=== PATIENT | female | born 1960 | race Caucasian/White ===

== ENCOUNTER 2016-11-01 19:41 | Emergency (ER) | payer BC ==
--- NOTE | 2016-11-01 20:48 | CT REPORT ---
HISTORY: Left lower quadrant abdominal pain. COMPARISON: None. TECHNIQUE: This examination was performed using automated exposure control, adjustment of mA or kV according to patient size, and/or use of iterative reconstruction technique. Axial contiguous images of the abdome n and pelvis were obtained without oral or IV contrast, coronal reformat images also performed. FINDINGS: The visualized lung parenchyma and cardiac structures are unremarkable. The right and left kidneys are unremarkable. There is no hydronephrosis or hydroureter. There is no c alculus. There is no hepatic mass or intrahepatic biliary dilatation identified on limited noncontrast imaging . The gallbladder is unremarkable, there is no cholelithiasis or pericholecystic fluid. The spleen is unremarkable. There is no pancreatic mass or ductal dilatation. The adrenal glands are unremark able. The stomach, small bowel and large bowel are unremarkable, aside from very minimal diverticulosis of the distal descending colon. There is no free intraperitoneal fluid or gas. There is no mesenteric edema or inflammatory process. Vascular structures of the abdomen and pelvis are unremarkable. No p athologic adenopathy is identified. There is no bone lesion. IMPRESSION: Distal descending colon diverticulosis, no acute diverticulitis, no acute intraperitoneal findings. Final Electronic Signature: This report was electronically signed by Jesus Alberto Rodriguez MD, FACR on 2016 8:46 PM. brayden /
--- NOTE | 2016-11-01 21:32 | ER PHYSICIAN DOCUMENTATION ---
Physician Documentation [facility] Name:Corina Ruby Age:56 yrs Sex:Female :1960 Arrival Date:11/01/2016 Time:19:41 Bed4 Private MD: Abner Cespedes Disposition: 11/01/16 21:07 Discharged to Home/Self Care. Impression: Abdominal Pain, Left Lower Quadrant. - Condition is Good. - Discharge Instructions: ABDOMINAL PAIN, Unknown Cause, (Female). - Medical Reconciliation form form. - Follow up: Emergency Department; When: As needed; Reason: Worsening of condition. - Problem is new. - Symptoms have improved. HPI: 11/01 20:00 This 56 yrs old Female presents to ER via Walk In with complaints of jm Abdominal Pain - LLQ. 20:00 The patient presents with abdominal pain in the left lower quadrant. Onset: The jm symptoms/episode began/occurred yesterday, and became worse today. The symptoms do not radiate. Associated signs and symptoms: Pertinent negatives: blood in stools, constipation, diarrhea, dysuria, fever, nausea, vomiting. The symptoms are described as sharp. Modifying factors: the symptoms are aggravated by movement. Severity of pain: in the emergency department the pain is unchanged. The patient has not experienced similar symptoms in the past. The patient has not recently seen a physician. Pt states pain is much worse when she bends over and moves around. She denies pulling a muscle. No dx of diverticula. . Historical: - Allergies: Dilaudid-HP; Latex; - Home Meds: 1. Celexa 20 mg oral tab Unknown once daily 2. Zoloft 20 mg/mL oral conc Unknown once daily for Depression associated with Manic Depressive Disorder - PMHx: OSTEOARTHRITIS; Foreign Body in Finger - : Removed (January 17, 2015); Finger Laceration - < 1 cm Simple Repaired by (January 17, 2015); - PSHx: KNEE SURGERY; APPENDECTOMY; HYSTERECTOMY; - Tetanus: < 10 years. - Ebola Screening: : No symptoms or risks identified at this time. . - Immunization history: Flu Vaccine < 1 year. - Social history: Smoking status: Patient states was never smoker of tobacco. ROS: 20:00 Constitutional: Negative for fever. jm 20:00 Cardiovascular: Negative for chest pain. 20:00 Abdomen/GI: Positive for abdominal pain, Negative for nausea, vomiting, diarrhea, constipation. 20:00 Back: Negative for injury or acute deformity, pain with movement. 20:00 : Negative for urinary symptoms, hematuria, flank pain. Exam: 20:00 Constitutional: The patient appears alert, awake, comfortable. 20:00 Eyes: Periorbital structures: appear normal, Conjunctiva: normal. 20:00 ENT: Mouth: is normal, Voice: is normal. 20:00 Cardiovascular: Rate: normal, Rhythm: regular. 20:00 Respiratory: Respirations: normal, Breath sounds: are normal. 20:00 Abdomen/GI: Bowel sounds: normal, Palpation: mild abdominal tenderness, in the left lower quadrant, rebound tenderness, is not appreciated, voluntary guarding, is not appreciated, involuntary guarding, is not appreciated. 20:00 Back: pain, is absent, CVA tenderness, is absent. 20:00 : CVA tenderness, is absent, Bladder: is normal. 20:00 Skin: Appearance: Color: pink, injury, is not appreciated. 20:00 Neuro: Mentation: is normal, Memory: is normal. 20:00 Psych: Behavior/mood is pleasant, cooperative, Affect is calm. Vital Signs: 19:55 BP 139 / 92 RA Sitting (auto/reg); Pulse 80 LA; Resp 16 S; Temp 98.2; Pulse Ox 93% on em3 R/A; Weight 68.95 kg (R); Height 5 ft. 4 in. (162.56 cm) (R); Pain 2/10; 21:28 BP 127 / 84; Pulse 86; Resp 15; Temp 98.4; Pulse Ox 90% ; Pain 2/10; mk4 19:55 Body Mass Index 26.09 (68.95 kg, 162.56 cm) em3 MDM: 20:05 Patient medically screened. 11/02 11:47 Differential diagnosis: diverticulitis, non-specific abd pain, urinary tract infection, jm muscle strain. Data reviewed: vital signs, nurses notes, lab test result(s), radiologic studies, and as a result, I will discharge patient. Counseling: I had a detailed discussion with the patient and/or guardian regarding: the historical points, exam findings, and any diagnostic results supporting the discharge/admit diagnosis, lab results, radiology results, the need for outpatient follow up, with the patient's primary care provider. ED course: CT shows no abnormalities. UA normal as well. . 11/01 20:49 Order name: CAT SCAN; [place] [id number] EDMS 11/01 19:54 Order name: NPO; Complete Time: : Dispensed Medications: 11/01 20:22 CANCELLED (Physician Discretion): Zofran 4 mg IVP once over 2 mins 21:15 Drug: HYDROcodone-acetaminophen (5mg/325 mg) 1-2 tabs 1 tabs; Route: PO; mk4 11/02 01:20 Follow up: Response: Pharmacy closed - take home med pack mk4 Signatures: Abner Robertson MD MD jm King, Melody mk4
--- NOTE | 2016-11-01 21:32 | ER NURSING DOCUMENTATION ---
Nurse's Notes [facility] Name:Corina Ruby Age:56 yrs Sex:Female :1960 Arrival Date:11/01/2016 Time:19:41 Bed4 Private MD: Diagnosis:Abdominal Pain, Left Lower Quadrant Presentation: 11/01 19:59 Presenting complaint: Patient states: LLQ pain x 1 day. Recent back injury from working 4 out. Pain only on movement. Transition of care: Home. 19:59 Method Of Arrival: Walk In [facility] 19:59 Acuity: KUSUM 3 [facility] Triage Assessment: 20:15 General: Appears in no apparent distress, Behavior is appropriate for age, cooperative. mk4 Pain: Complains of pain in left lower quadrant Pain radiates to left low back Quality of pain is described as sharp, shooting. Neuro: No deficits noted. Cardiovascular: No deficits noted. Respiratory: Airway is patent. GI: Abdomen is flat, non- distended. Historical: - Allergies: Dilaudid-HP; Latex; - Home Meds: 1. Celexa 20 mg oral tab Unknown once daily 2. Zoloft 20 mg/mL oral conc Unknown once daily for Depression associated with Manic Depressive Disorder - PMHx: OSTEOARTHRITIS; Foreign Body in Finger - : Removed (January 17, 2015); Finger Laceration - < 1 cm Simple Repaired by MD (January 17, 2015); - PSHx: KNEE SURGERY; APPENDECTOMY; HYSTERECTOMY; - Tetanus: < 10 years. - Ebola Screening: : No symptoms or risks identified at this time. . - Immunization history: Flu Vaccine < 1 year. - Social history: Smoking status: Patient states was never smoker of tobacco. Screenin:21 Infectious Disease Risk None. Abuse screen: denies. Nutritional screening: No deficits [facility] noted. Assessment: 20:20 See Triage Assessment done by same RN. [facility] 21:30 GI: Bowel sounds present X 4 quads. Abd is soft and non tender. 4 Vital Signs: 19:55 BP 139 / 92 RA Sitting (auto/reg); Pulse 80 LA; Resp 16 S; Temp 98.2; Pulse Ox 93% on em3 R/A; Weight 68.95 kg (R); Height 5 ft. 4 in. (162.56 cm) (R); Pain 2/10; 21:28 BP 127 / 84; Pulse 86; Resp 15; Temp 98.4; Pulse Ox 90% ; Pain 2/10; mk4 19:55 Body Mass Index 26.09 (68.95 kg, 162.56 cm) em3 ED Course: 19:42 Patient arrived in ED. em3 19:59 Kemi Steinberg is Primary Nurse. 4 20:05 Abner Robertson MD is Attending Physician. 20:09 Valuables Remains with patient Patient has correct armband on for positive em3 identification. Placed in gown. Bed in low position. Call light in reach. Side rails up X 1. Warm blanket given. 20:12 Triage completed. [facility] 20:[address] Robertson notified. Allergy Band Placed Arm band placed on Bed in [facility] low position Call Light in Reach Side rails up x2. Family accompanied patient. 20:[address] karson 20:39 Patient moved back from [address]. karson Administered Medications: 20:22 CANCELLED (Physician Discretion): Zofran 4 mg IVP once over 2 mins del 21:15 Drug: HYDROcodone-acetaminophen (5mg/325 mg) 1-2 tabs 1 tabs; Route: PO; [facility] 11/02 01:20 Follow up: Response: Pharmacy closed - take home med pack [facility] Outcome: 11/01 21:07 Discharge ordered by . del 21:28 Discharged to home [facility] 21:28 Condition: good 21:28 Discharge Assessment: Patient awake, alert and oriented x 3. No cognitive and/or functional deficits noted. Patient verbalized understanding of disposition instructions. 21:28 Discharge instructions given to patient, Instructed on discharge instructions, follow up and referral plans. Demonstrated understanding of instructions. 21:31 Patient left the ED. [facility] 11/02 09:33 Discharge F/U Call: Unable to reach: non-working number st Signatures: Riana Zacarias, RN RN Abner Bates MD MD jm Abbott, Evelia Valera, Yonis em3 Kemi Steinberg [facility]
[2016-11-01] MEDS ORDERED: HYDROcodone/APAP PREPAC 5/325 1 TAB TABLET PO ONE (21:34)
== END 2016-11-01 21:32 | disposition home or self-care (01) ==
LOC: ER 19:41
DX: R10.32 Left lower quadrant pain (principal); Z79.899 Other long term (current) drug therapy
CPT/HCPCS: 74176; 99284